=== PATIENT | male | born 1960 | race Two or more races ===

== ENCOUNTER 2021-12-02 11:15 | Emergency (ER) | payer OTHER ==
[~2021-12-02] VITALS: Ht 175.3 cm; Wt 79.4 kg
[~2021-12-02 11:15] MED LIST: LEVAQUIN750 MG PO; LEVSIN/SL0.125 MG SL; PREDNISONE20 MG PO; TUSSIONEX PENNKI5 ML PO
[2021-12-02] MEDS ORDERED: COZAAR100 MG PO (11:46)
[2021-12-02] MEDS ORDERED: PEPCID AC20 MG PO (12:54)
== END 2021-12-02 13:31 | disposition home or self-care (01) ==
LOC: ER 11:15
DX: K21.9 Gastro-esophageal reflux disease without esophagitis (principal); I10 Essential (primary) hypertension

== ENCOUNTER 2022-02-22 11:22 | Emergency (ER) | payer OTHER ==
[~2022-02-22] VITALS: Ht 175.3 cm; Wt 79.4 kg
[~2022-02-22 11:22] MED LIST changes: +COZAAR100 MG PO; +PEPCID AC20 MG PO
== END 2022-02-22 15:10 | disposition home or self-care (01) ==
LOC: ER 11:22
DX: K21.9 Gastro-esophageal reflux disease without esophagitis (principal); I10 Essential (primary) hypertension

== ENCOUNTER 2024-07-16 11:02 | Outpatient (CLI) | payer OTHER | END 2024-07-16 11:07 | disposition home or self-care (01) | LOC: SONOGRAMA 11:02 | DX: I70.0 Atherosclerosis of aorta (principal); I11.9 Hypertensive heart disease without heart failure; J45.909 Unspecified asthma, uncomplicated; R76.11 Nonspecific reaction to tuberculin skin test without active tuberculosis; R10.30 Lower abdominal pain, unspecified ==